=== PATIENT | male | born 1995 | race Caucasian/White ===

== ENCOUNTER 2017-08-22 12:13 | Emergency (ER) | payer OTHER, BC ==
[2017-08-22 12:20] VITALS: BP 142/85
--- NOTE | 2017-08-22 13:01 | ER Document Report ---
ED General - General Chief Complaint: Foreign Body in Eye Stated Complaint: DEBRIS IN EYE Time Seen by Provider: 08/22/17 12:59 Mode of Arrival: Ambulatory Information source: Patient Notes: Patient is a 22-year-old male who presents with left eye pain after possible debris that started around 1130. 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 He endorses associated photosensitivity and headache but denies any blurred vision, changes in vision, dizziness. He was wearing protective eyewear at the time. He rates the pain as 2 out of 5. He has not had any medications for this. Otherwise doing well. TRAVEL OUTSIDE OF THE [place] IN LAST 30 DAYS: No - Related Data Allergies/Adverse Reactions: No Known Allergies Allergy (Verified 08/22/17 12:13) Home Medications: Current Home Medications Cetirizine HCl [Zyrtec] 10 mg PO DAILY 08/22/17 [History] Past Medical History - General Information source: Patient - Social History Smoking Status: Current Every Day Smoker Chew tobacco use (# tins/day): No Frequency of alcohol use: Rare Drug Abuse: None Family History: Reviewed & Not Pertinent Patient has suicidal ideation: No Patient has homicidal ideation: No Renal/ Medical History: Denies: Hx Peritoneal Dialysis Review of Systems - Review of Systems Constitutional: See HPI EENT: See HPI Cardiovascular: No symptoms reported Respiratory: No symptoms reported Gastrointestinal: No symptoms reported Genitourinary: No symptoms reported Male Genitourinary: No symptoms reported Musculoskeletal: No symptoms reported Skin: No symptoms reported Hematologic/Lymphatic: No symptoms reported Neurological/Psychological: No symptoms reported Physical Exam - Vital signs Vitals: Temp Pulse Resp BP Pulse Ox 98.5 F 61 16 142/85 H 98 08/22/17 12:20 08/22/17 12:20 08/22/17 12:20 08/22/17 12:20 08/22/17 12:20 - Notes Notes: PHYSICAL EXAM: CONSTITUTIONAL: Alert and oriented, well-appearing and in no acute distress. HENT: Normocephalic, atraumatic. Ear canals without erythema or foreign body, TMs pearly erickson with good bony landmarks. Nares clear without erythema, septal hematoma or deviation, airway patent. Oropharynx clear without erythema, tonsilar exudate or malocclusion. Trachea midline. Uvula midline. Moist mucous membranes. EYES: Pupils equal round and reactive to light, EOM intact. Sclera anicteric, conjunctiva are normal. No entrapment. Fluorescein eye exam reveals corneal abrasion bilaterally without evidence of foreign body or metallic foreign body. NECK: supple without lymphadenopathy. No midline tenderness or paraspinous muscle spasms. No step-offs or deformities. ROM intact. HEART: Regular rate and rhythm without murmurs. LUNGS: CTAB and equal. No wheezes, rales or rhonchi. EXTREMITIES: Normal range of motion, no pitting edema. No cyanosis. Cap Refill < 3 seconds. NEURO: Cranial nerves grossly intact. Normal sensory/motor exams. PSYCH: Normal mood, normal affect. SKIN: Warm and dry. Normal turgor. No rashes or lesions noted. Course - Re-evaluation Re-evalutation: 08/22/17 13:00 Patient seen and examined. - Vital Signs Vital signs: Temp Pulse Resp BP Pulse Ox 98.5 F 61 16 142/85 H 98 08/22/17 12:20 08/22/17 12:20 08/22/17 12:20 08/22/17 12:20 08/22/17 12:20 Procedures - Eye Procedure Left Eye Irrigated w/ Saline (ccs): 10 Alcaine Drops Administered: Yes Fluorescein applied: Left Slit lamp used: No Discharge - Discharge Clinical Impression: Corneal abrasion Qualifiers: Encounter type: initial encounter Laterality: left Qualified Code(s): S05.02XA - Injury of conjunctiva and corneal abrasion without foreign body, left eye, initial encounter Condition: Stable Disposition: HOME, SELF-CARE Additional Instructions: Eyedrop Use Eyedrops are most easily applied by pulling down on the cheek just below the lower eyelid. The lower lid will pop out to form a pouch into which you can drop the medicine. A small brief sting is not unusual, especially if the eye is reddened and irritated already. Use the drops exactly as recommended. You should see the doctor at once if there is a decrease in vision, swelling of the eye, or an increase in discomfort. For your eyedrops, for days [address] 2 drops in left eye every 2 hours while awake. For days 3 through 5, place 2 drops in left eye every 4-5 hours. Corneal Abrasion You have a corneal abrasion, a scratch on the surface of the eye. The pain of a corneal abrasion feels like a sharp particle in the eye. Usually, antibiotics are placed in the eye to prevent infection. Occasionally, medication will be placed in the eye to dilate the pupil. This is done to relieve some of your discomfort and is only temporary. Pain medication may be required. Don't drive or operate machinery until you have the use of both your eyes. The abrasion usually is healed in one or two days. A follow-up examination to confirm healing is recommended. Call the doctor or return at once if you develop severe pain, decreasing vision, eye swelling, or purulent drainage. Follow-up with an eye doctor in 2-3 days if no improvement. Return if symptoms worsen. Prescriptions: Tramadol HCl [Ultram] 50 mg PO Q8HP PRN #10 tablet PRN Reason: Ciprofloxacin HCl [Ciloxan 0.3% Oph Soln 2.5 ml] 1 drop OS ASDIR PRN #1 bottle PRN Reason: Forms: Elevated Blood Pressure, Return to Work
== END 2017-08-22 13:53 | disposition home or self-care (01) ==
LOC: ER 12:13
DX: S05.02XA Injury of conjunctiva and corneal abrasion without foreign body, left eye, initial encounter (principal); W20.8XXA Other cause of strike by thrown, projected or falling object, initial encounter; Y92.513 Shop (commercial) as the place of occurrence of the external cause; Y99.0 Civilian activity done for income or pay; H57.12 Ocular pain, left eye; H53.142 Visual discomfort, left eye; R51 Headache; F17.200 Nicotine dependence, unspecified, uncomplicated
CPT/HCPCS: 99283